=== PATIENT | female | born 1975 | race Caucasian/White ===

== ENCOUNTER 2016-09-17 21:17 | Emergency (ER) | payer SELFPAY ==
[~2016-09-17] VITALS: Ht 171.4 cm; Wt 106.7 kg
[~2016-09-17 21:17] MED LIST: ACET-2321 PO; IBUP-14 PO
--- OUTSIDE RECORDS SUMMARY | 2016-09-17 21:21 | XMS REPORT ---
Author Author Tara Gibson Organization [employer] Address Unknown Phone Unavailable Care Team Providers Care Galley Hand Name Role Phone Tara Gibson CP Unavailable Allergies, Adverse Reactions, Alerts Substance Reaction Event Type Penicillin Info Not Available Drug Allergy Problems Problem Type Condition Code Onset Dates Condition Status Assessment URI 460 Active Assessment Depressive disorder, not elsewhere classified 311 Active Problem Depressive disorder, not elsewhere classified 311 Active Medications Medication Code System Code Instructions Start Date End Date Status Dosage Advil [facility] [address]-32 200 MG Orally every 6 hrs 1 tablet as needed Azithromycin [facility] [address]-81 250 MG Orally Once a day 2014 November 11, 2014 2 tablets on the first day, then 1 tablet daily for 4 days Citalopram Hydrobromide [facility] [address]-06 20 MG Orally Once a day August 2 tablets Procedures Procedure Coding System Code Date OFFICE VISIT, EST-LOW COMPLEXITY (15 MIN.) CPT-4 44908 2014 Vital Signs Date/Time: 2014 Blood Pressure Systolic 108 mm Hg Cardiac Monitoring Heart Rate 72 /min Height 67 in Blood Pressure Diastolic 60 mm Hg Results No Known Results Summary Purpose [employer] Submission
--- OUTSIDE RECORDS SUMMARY | 2016-09-17 21:21 | XMS REPORT ---
Author Author Tara Gibson Organization [employer] Address Unknown Phone Unavailable Care Team Providers Care Paralegal Specialist Name Role Phone Tara Gibson CP Unavailable Allergies, Adverse Reactions, Alerts Substance Reaction Event Type Penicillin Info Not Available Drug Allergy Problems Problem Type Condition Code Onset Dates Condition Status Assessment Depressive disorder, not elsewhere classified 311 Active Problem Depressive disorder, not elsewhere classified 311 Active Medications Medication Code System Code Instructions Start Date End Date Status Dosage Advil [facility] [address]-01 200 MG Orally every 6 hrs 1 tablet as needed Citalopram Hydrobromide [facility] [address]-16 20 MG Orally Once a day August 1/2 tablet x 7d, then 1 pill qd Procedures Procedure Coding System Code Date COMPLETE CBC W/AUTO DIFF WBC CPT-4 78290 August 02, 2014 COMPREHENSIVE METABOLIC PANEL CPT-4 61104 August 02, 2014 URINALYSIS, IN HOUSE CPT-4 49935 August 02, 2014 TSH CPT-4 48561 August 02, 2014 LIPID PANEL CPT-4 83059 August 02, 2014 OFFICE VISIT, EST-MOD. COMPLEXITY (25 MIN) CPT-4 13363 August 02, 2014 Vital Signs Date/Time: August 02, 2014 Height 67 in Weight 215.8 lbs Temperature 98.0 F Blood Pressure Diastolic 62 mm Hg Blood Pressure Systolic 124 mm Hg Cardiac Monitoring Heart Rate 84 /min BMI 33.80 Index Respiratory Rate 16 /min Results No Known Results Summary Purpose [employer] Submission
--- OUTSIDE RECORDS SUMMARY | 2016-09-17 21:21 | XMS REPORT ---
Author Author Tara Gibson Organization [employer] Address Unknown Phone Unavailable Care Team Providers Care Admissions Consultant Name Role Phone Tara Gibson CP Unavailable Allergies No Known Allergies Problems Problem Type Condition Code Onset Dates Condition Status Problem Depressive disorder, not elsewhere classified 311 Active Medications Medication Code System Code Instructions Start Date End Date Status Dosage Indomethacin [facility] [place] [address]-21 50 MG Orally Three times a day September 07, 2014 September 22, 2014 1 capsule with food Results No Known Results Summary Purpose [employer] Submission
--- OUTSIDE RECORDS SUMMARY | 2016-09-17 21:22 | XMS REPORT ---
Author Author Pipe Tinsley Organization [employer] Address Unknown Phone Unavailable Care Team Providers Care Coffee Grower Name Role Phone Pipe Tinsley CP Unavailable Allergies No Known Allergies Problems Problem Type Condition Code Onset Dates Condition Status Problem Depressive disorder, not elsewhere classified F32.9 Active Medications Medication Code System Code Instructions Start Date End Date Status Dosage Citalopram Hydrobromide [facility] [address]-82 20 MG Orally Once a day August 1 tablets Results No Known Results Summary Purpose [employer] Submission
--- OUTSIDE RECORDS SUMMARY | 2016-09-17 21:22 | XMS REPORT ---
Author Author Tara Gibson Organization [employer] Address Unknown Phone Unavailable Care Team Providers Care Stave Grader Name Role Phone Tara Gibson CP Unavailable Allergies, Adverse Reactions, Alerts Substance Reaction Event Type Penicillin Info Not Available Drug Allergy Problems Problem Type Condition Code Onset Dates Condition Status Assessment Depressive disorder, not elsewhere classified 311 Active Assessment Pain in joint, other specified sites 719.48 Active Problem Depressive disorder, not elsewhere classified 311 Active Medications Medication Code System Code Instructions Start Date End Date Status Dosage Indomethacin [facility] [address]-10 50 MG Orally Three times a day September 07, 2014 October 07, 2014 1 capsule with food Advil [facility] [address]-57 200 MG Orally every 6 hrs 1 tablet as needed Citalopram Hydrobromide [facility] [address]-28 20 MG Orally Once a day August 1 tablet Procedures Procedure Coding System Code Date OFFICE VISIT, EST-LOW COMPLEXITY (10 MIN.) CPT-4 69658 September 07, 2014 URIC ACID CPT-4 36435 September 07, 2014 Vital Signs Date/Time: September 07, 2014 Height 67 in Weight 210.0 lbs Temperature 98.9 F Blood Pressure Diastolic 72 mm Hg Blood Pressure Systolic 112 mm Hg Cardiac Monitoring Heart Rate 68 /min BMI 32.89 Index Respiratory Rate 16 /min Results No Known Results Summary Purpose [employer] Submission
--- OUTSIDE RECORDS SUMMARY | 2016-09-17 21:22 | XMS REPORT ---
Author Author Christelle Rodriguez Organization [employer] Address Unknown Phone Unavailable Care Team Providers Care Director Erp Name Role Phone Christelle Rodriguez CP Unavailable Allergies, Adverse Reactions, Alerts Substance Reaction Event Type Penicillin Info Not Available Drug Allergy Problems Problem Type Condition Code Onset Dates Condition Status Assessment Depressive disorder, not elsewhere classified F32.9 Active Assessment Adjustment disorder with anxiety F43.22 Active Problem Depressive disorder, not elsewhere classified F32.9 Active Medications Medication Code System Code Instructions Start Date End Date Status Dosage Citalopram Hydrobromide [facility] [address]-57 20 MG Orally Once a day August 1 tablets Ventolin HFA [facility] [address]-55 108 (90 Base) MCG/ACT Inhalation every 6 hrs May 29, 2015 1 to 2 puffs as needed for cough/congestion Advil [facility] [address]-68 200 MG Orally every 6 hrs 1 tablet as needed Procedures Procedure Coding System Code Date OFFICE VISIT, EST-LOW COMPLEXITY (15 MIN.) CPT-4 18186 Jan 02, 2016 Vital Signs Date/Time: Jan 02, 2016 Temperature 98.7 F Height 67 in Weight 193.0 lbs Blood Pressure Diastolic 86 mm Hg Blood Pressure Systolic 126 mm Hg Cardiac Monitoring Heart Rate 85 /min BMI 30.22 Index Oximetry 98 % Results No Known Results Summary Purpose [employer] Submission
--- OUTSIDE RECORDS SUMMARY | 2016-09-17 21:22 | XMS REPORT ---
Author Author Pipe Tinsley Organization [employer] Address Unknown Phone Unavailable Care Team Providers Care Gusset Edger Name Role Phone Pipe Tinsley CP Unavailable Allergies, Adverse Reactions, Alerts Substance Reaction Event Type Penicillin Info Not Available Drug Allergy Problems Problem Type Condition Code Onset Dates Condition Status Assessment Elevated blood-pressure reading, without diagnosis of hypertension R03.0 Active Assessment Dehydration E86.0 Active Assessment Syncope and collapse R55 Active Assessment Dizziness and giddiness R42 Active Problem Depressive disorder, not elsewhere classified 311 Active Assessment Other specified noninfective gastroenteritis and colitis K52.89 Active Assessment Adjustment disorder with anxiety F43.22 Active Assessment Shortness of breath R06.02 Active Assessment Infectious gastroenteritis and colitis, unspecified A09 Active Medications Medication Code System Code Instructions Start Date End Date Status Dosage Advil [facility] [address]-50 200 MG Orally every 6 hrs 1 tablet as needed Citalopram Hydrobromide [facility] [address]-77 20 MG Orally Once a day August 2 tablets Procedures Procedure Coding System Code Date COMPLETE CBC W/AUTO DIFF WBC CPT-4 96955 Feb 15, 2015 CREATINE KINASE (CPK) CPT-4 94504 Feb 15, 2015 OFFICE VISIT, EST-MOD. COMPLEXITY (25 MIN) CPT-4 63156 Feb 15, 2015 TEST, IN HOUSE CPT-4 27839 Feb 15, 2015 IH CMP CPT-4 30138 Feb 15, 2015 URINALYSIS, IN HOUSE CPT-4 53321 Feb 15, 2015 MAGNESIUM CPT-4 17391 Feb 15, 2015 D DIMER QUANT CPT-4 76978 Feb 15, 2015 TSH WITH REFLEX T4 CPT-4 50912 Feb 15, 2015 TROPONIN CPT-4 43788 Feb 15, 2015 Vital Signs Date/Time: Feb 15, 2015 Height 67 in Weight 206.8 lbs Temperature 98.3 F Blood Pressure Diastolic 76 mm Hg Blood Pressure Systolic 118 mm Hg Cardiac Monitoring Heart Rate 90 /min BMI 32.39 Index Oximetry 97 % Respiratory Rate 16 /min Results Name Result Date Reference Range Unit Abnormality Flag In House Test, Urine Summary Purpose [employer] Submission
--- OUTSIDE RECORDS SUMMARY | 2016-09-17 21:22 | XMS REPORT ---
Author Author Christelle Rodriguez Organization [employer] Address Unknown Phone Unavailable Care Team Providers Care Concession Manager Name Role Phone Christelle Rodriguez CP Unavailable Allergies, Adverse Reactions, Alerts Substance Reaction Event Type Penicillin Info Not Available Drug Allergy Problems Problem Type Condition Code Onset Dates Condition Status Assessment Depressive disorder, not elsewhere classified F32.9 Active Problem Depressive disorder, not elsewhere classified F32.9 Active Medications Medication Code System Code Instructions Start Date End Date Status Dosage Citalopram Hydrobromide [facility] [address]-11 20 MG Orally Once a day August 1 tablets Advil [facility] [address]-92 200 MG Orally every 6 hrs 1 tablet as needed Ventolin HFA [facility] [address]-99 108 (90 Base) MCG/ACT Inhalation every 6 hrs May 29, 2015 1 to 2 puffs as needed for cough/congestion Procedures Procedure Coding System Code Date OFFICE VISIT, EST-LOW COMPLEXITY (15 MIN.) CPT-4 42607 Mar 06, 2016 Vital Signs Date/Time: Mar 06, 2016 Temperature 98.2 F Height 67 in Weight 193.8 lbs Blood Pressure Diastolic 64 mm Hg Blood Pressure Systolic 108 mm Hg Cardiac Monitoring Heart Rate 70 /min BMI 30.35 Index Oximetry 98 % Respiratory Rate 14 /min Results No Known Results Summary Purpose [employer] Submission
--- OUTSIDE RECORDS SUMMARY | 2016-09-17 21:22 | XMS REPORT ---
Author Author Tara Gibson Organization [employer] Address Unknown Phone Unavailable Care Team Providers Care Personal Injury Legal Assistant Name Role Phone Tara Gibson CP Unavailable Allergies, Adverse Reactions, Alerts Substance Reaction Event Type Penicillin Info Not Available Drug Allergy Problems Problem Type Condition ICD-9 Code Onset Dates Condition Status Assessment Acute pharyngitis 462 Active Assessment Unspecified viral infection, in conditions classified elsewhere and of unspecified site 079.99 Active Medications Medication Code System Code Instructions Start Date End Date Status Dosage Advil [facility] [address]-18 200 MG Orally every 6 hrs 1 tablet as needed Procedures Procedure Coding System Code Date OFFICE VISIT, EST-MOD. COMPLEXITY (25 MIN) CPT-4 53948 Jun 07, 2014 Vital Signs Date/Time: Jun 07, 2014 Height N/A in Weight 218 lbs Temperature 99.5 F Blood Pressure Diastolic 60 mm Hg Blood Pressure Systolic 120 mm Hg Cardiac Monitoring Heart Rate 102 /min BMI 34.14 Index Oximetry 96 % Results No Known Results Summary Purpose [employer] Submission
--- OUTSIDE RECORDS SUMMARY | 2016-09-17 21:22 | XMS REPORT ---
Author Author Tara Gibson Organization [employer] Address Unknown Phone Unavailable Care Team Providers Care Skein Yarn Dyer Name Role Phone Tara Gibson CP Unavailable Allergies No Known Allergies Problems Problem Type Condition Code Onset Dates Condition Status Problem Depressive disorder, not elsewhere classified 311 Active Medications Medication Code System Code Instructions Start Date End Date Status Dosage Citalopram Hydrobromide [facility] [address]-35 20 MG Orally Once a day August 1/2 tablet x 7d, then 1 pill qd Results No Known Results Summary Purpose [employer] Submission
[2016-09-17 22:20] VITALS: Ht 171.4 cm; Wt 106.7 kg
[2016-09-17] MEDS ORDERED: CITA20TA17 PO (22:37)
--- NOTE | 2016-09-17 22:46 | ERPDOC ---
Departure Disposition Decision Date: September 18, 2016 Disposition Decision Time: 23:45 Disposition: 01 DISCHARGED HOME, SELF-CARE Impression Impression Impression: Primary Impression: Constipation Constipation type: slow transit constipation Qualified Codes: K59.01 - Slow transit constipation Additional Impression: RUQ abdominal pain Severity: Moderate Condition: Improved Seen By: Mid-level only Referrals: ASHWIN SNOW DO (Family) Patient Instructions: Constipation (ED) Problems/Meds/Labs Reviewed?: Yes Medications reviewed and manag: Yes Additional Instructions: Your labs were normal today. You abdominal film indicates you are constipated. You may take [id number]-[id number] milk of magnesia or MiraLAX for constipation. You may ask her to drink prune juice or apple juice. Stay well hydrated drink 8-12 glasses of water daily. Follow with your PCP if your symptoms are not improving. Follow treatment plan. Follow up care ordered?: Yes Mental Status: Alert, Oriented HPI - Abdominal Pain General Chief Complaint: Abdominal Pain Stated Complaint: RT SIDE PAIN Time Seen by Provider: 22:46 Source: patient HPI - Abdominal Pain Initial Comments 40-year-old female presents to ER with complaint of right upper quadrant pain and pain up under rib cage on right side which radiates to her right back under shoulder blade. Patient states pain has been continuous since September 12. States she has a doctor's appointment tomorrow. Does admit that she has had a cough intermittently for approx. 1 month. Admits nausea but none at this time. Denies fever, chills, SOB, vomiting, constipation. When I asked patient if she has had any problem with her gallbladder she says she has had sonogram on it and "it was fine". Pain Scale: Now: 8/10 Quality: aching Location: RUQ Modifying Factors: WORSE WITH: palpation Associated Symptoms: back pain, DENIES: chest pain, diaphoresis, fatigue, fever /chills, headache, heartburn, nausea/vomiting, shortness of breath, swelling/ mass in abdomen, weakness Allergies: Coded Allergies: Penicillins (Verified Allergy, Mild, RASH, 09/17/16) HASN'T HAPPENED SINCE SHE WAS A CHILD Past History Past Medical History Metabolic: DENIES: diabetes, hypertension Cardiac: DENIES: angina Respiratory: DENIES: asthma GI: DENIES: ulcers Neurological: DENIES: seizures Musculoskeletal: osteoarthritis Surgical History Reproductive/: , tubal ligation Joint: other (right clavicle repair and ankle ) Family History Family PMH: FOUND: other (noncontributory) Vaccines Hx Influenza Vaccination: No Hx Pneumococcal Vaccination: No Social History Does patient use chewing tobac: No # of Packs/Tins per Day: 1 # of Years: 15 Household Members: family Review of Systems Constitutional Constitutional: DENIES: chills, dizziness, fever, weakness Eyes General: DENIES: erythema, exudate Lids/Accessories: DENIES: erythema, swelling ENMT Ears: DENIES: pain Hearing: DENIES: hearing loss Sinuses: DENIES: congestion, rhinorrhea Mouth/Throat: DENIES: sore throat Cardiovascular Cardiac: DENIES: chest pain, murmur Rhythm/Rate: DENIES: palpitations Pulmonary Respiratory: DENIES: cough, dyspnea GI Upper Abdomen: DENIES: nausea, pain, vomiting Lower Abdomen: DENIES: blood in stool, diarrhea, pain General: DENIES: dysuria, pain Musculoskeletal General: DENIES: joint pain, pain, tenderness Integumentary Skin: DENIES: color change, itching, rash Neurological General: DENIES: ataxia, change in strength, numbness, paralysis/paresis, weakness Psychiatric Psychiatric: DENIES: anxiety, depression, nervousness Physical Exam General General Nourishment: well nourished, well developed, no acute distress, adult General Body Habitus: well groomed Vitals and Pain First Documented Vital Signs Date Time Temp Pulse Resp B/P Pulse Ox O2 Delivery O2 Flow Rate FiO2 09/17/16 22:20 98.1 76 125/64 96 Room Air 09/17/16 23:12 20 Weight: Kilograms: 106.700 Height (feet): 5 Height (inches): 7.50 Triage Pain Scale: Eyes (brief) Eyes Brief: found: EOMI ENMT (brief) ENMT Brief: FOUND: mucosa moist, NOT FOUND: nasal exudate, nasal swelling, pharnyx erythema Neck (brief) Neck: FOUND: trachea midline Respiratory (brief) Respiratory: FOUND: clear all taylor, equal bilaterally, symmetrical, NOT FOUND : wheezes Cardiovascular (brief) Cardiac: FOUND: regular rate, regular rhythm Abdomen Inspection: NOT FOUND: distention Palpation: FOUND: soft, tender (RUQ), NOT FOUND: Sapp's sign, Rosving's sign , hepatomegaly, splenomegaly Auscultation: FOUND: normoactive (x4) Musculoskeletal (brief) Musculoskeletal Brief: NOT FOUND: deformity, loss of motion Integumentary (brief) Integumentary Brief: FOUND: dry, pink, warm Neurologic (brief) Neurological Brief: FOUND: gait w/o gross def to obs, motor-no gross deficits, sensory-no gross deficits Psychiatric (brief) Psychiatric Brief: FOUND: alert, oriented Differential Diagnoses Considering: Biliary Colic, Cholecystitis, Constipation, Diverticulitis, GERD, Pancreatitis, Pneumonia, Ulcer Progress Results/Orders Orders Lab Results Medications Current ED Medications Hydromorphone HCl (Dilaudid) 1 mg O ONCE IV Last administered on 09/17/16 23: 12; Start 09/17/16 at 23:00; Stop 09/17/16 at 23:01; Status DC Ondansetron HCl (Zofran) 4 mg O ONCE IV Last administered on 09/17/16 23:13; Start 09/17/16 at 23:00; Stop 09/17/16 at 23:01; Status DC Progress Progress Labs are unremarkable Patient is feeling better after Dilaudid. I discussed labs/x-rays with patient and that she had a moderate stool burden in colon. I discussed treatment plan, close follow up with PCP and return precautions which patient verbalized understanding. Xray Xray #1: Xray: CXR PA/Lat Interpretation: Normal (no acute cardiopulmonary findings (Dr. Andrade)) Xray #2: Xray: KUB Upright (nonobstructive pattern, large amount of stool in) CHELSEA SCOTT BROOMCORN SORTER September 17, 2016 22:46 (AST/SGOT) 17U/L Alanine Aminotransferase (ALT/SGPT) 41U/L Alkaline Phosphatase 88U/L Total Protein 7.6G/DL Albumin 4.4G/DL Globulin 3.2G/DL Albumin/Globulin Ratio 1.4RATIO Lipase 115U/L Chemistry Specimen Hemolysis < 15 Medications Current ED Medications Hydromorphone HCl (Dilaudid) 1 mg O ONCE IV Last administered on 09/17/16 23: 12; Start 09/17/16 at 23:00; Stop 09/17/16 at 23:01; Status DC Ondansetron HCl (Zofran) 4 mg O ONCE IV Last administered on 5/17/17at 23:13; Start 09/17/16 at 23:00; Stop 09/17/16 at 23:01; Status DC CHELSEA SCOTT APRN September 17, 2016 22:46
[2016-09-17] MEDS ORDERED: HYDROMORPHONE 2mg/ml INJECTION IV ONE (23:00)
[2016-09-17] MEDS ORDERED: ONDANSETRON 4mg/2ml INJECTION IV ONE (23:00)
[2016-09-17 23:05] LABS: BASOPHILS # (AUTO) 0.1 T/MM3 (0-0.2); BASOPHILS % (AUTO) 0.6 % (0-2); EOSINOPHILS # (AUTO) 0.2 T/MM3 (0-0.5); EOSINOPHILS % (AUTO) 2.4 % (0-4); HGB - HEMOGLOBIN 14.8 GM/DL (12-16); IMMATURE GRANULOCYTE # (AUTO) 0.03 T/MM3 (0.00-0.03); IMMATURE GRANULOCYTE % (AUTO) 0.3 % (0.0-0.5); LYMPHOCYTES # (AUTO) 3.1 T/MM3 (1-4.8); LYMPHOCYTES % (AUTO) 35.9 % (23-45); MEAN CORPUSCULAR HGB 28.9 UUG (26-34); MEAN CORPUSCULAR HGB CONC(MCHC 33.6 GM/DL (31-37); MEAN CORPUSCULAR VOLUME 85.9 UM3 (80-100); MEAN PLATELET VOLUME 8.8 UM3 (9.4-12.4); MONOCYTES # (AUTO) 1.2 T/MM3 (0-0.8); NEUTROPHILS #(AUTO)-ABSOLUTE 4.1 T/MM3 (1.8-7.7); NEUTROPHILS % (AUTO) 46.8 % (33-66); RED BLOOD COUNT 5.12 M/MM3 (4.00-5.20); WBC - WHITE BLOOD COUNT 8.7 T/MM3 (4.5-11.0)
[2016-09-17 23:14] LABS: ALBUMIN 4.4 G/DL (3.5-5.0); ALBUMIN/GLOBULIN RATIO 1.4 RATIO (1.1-2.2); ALKALINE PHOSPHATASE 88 U/L (38-126); ALT (SGPT) 41 U/L (9-52); ANION GAP 12 MEQ/L (5-15); AST (SGOT) 17 U/L (14-36); BUN/CREATININE RATIO 22 RATIO (6-26); CHLORIDE 106 MEQ/L (98-107); CO2 - CARBON DIOXIDE 26 MEQ/L (22-30); CREATININE 0.6 MG/DL (0.7-1.2); GLOMERULAR FILTRATION RATE 111; GLUCOSE 87 MG/DL (65-110); LIPASE 115 U/L (23-300); POTASSIUM 3.6 MEQ/L (3.6-5); SODIUM 144 MEQ/L (134-144); TOTAL PROTEIN 7.6 G/DL (6.3-8.2)
--- NOTE | 2016-09-17 23:30 | NUR ---
IMAGING PT TO IMAGING VIA CART AT THIS TIME.
--- NOTE | 2016-09-17 23:50 | NUR ---
IMAGING PT RETURN TO ROOM FROM IMAGING AT THIS TIME.
[2016-09-18 00:36] VITALS: BP 130/75; PULSE 81; RESP 20; TEMP 98.1; O2SAT 98
--- NOTE | 2016-09-18 00:36 | NUR ---
DEPART PT GIVEN DI FOR CONSTIPATION AND F/U. VERBALIZES UNDERSTANDING OF DI. QUESTIONS ASKED/ANSWERED - DENIES FURTHER QUESTIONS/NEEDS A THIS TIME. PT REPORTS IMPROVEMENT IN PAIN. IV SITE REMOVED. PERSONAL BELONGINGS GATHERED. PT AMBULATED/ESCORTED TO ED EXIT - GAIT STABLE, NO SIGN OF DISTRESS.
--- NOTE | 2016-09-18 08:00 | DI ---
Indication: ITS.REASON: RUQ pain PROCEDURE: KUB W/UPRIGHT: Encounter: Initial Comparison: None Findings: The visualized lung bases show some airspace opacity in right lower lobe. There is no free air on the upright view. The bowel gas pattern is nonobstructive and nonspecific. Gas is seen in nondilated small and large bowel to the level of the rectum. Moderate stool is seen throughout the colon. The bony structures are grossly unremarkable. Impression: Nonobstructive nonspecific bowel gas pattern. Right basilar airspace disease. .
--- NOTE | 2016-09-18 08:02 | DI ---
INDICATION: ITS.REASON: Pain right anterior chest PROCEDURE: CHEST 2-VIEWS UPRIGHT (PA \T\ LAT) Encounter: Initial COMPARISON: March 23, 2010 FINDINGS: There is some linear airspace opacity in the right middle lobe. The remaining lung taylor are clear. No pleural effusion or pneumothorax. Heart size and mediastinal contours are within normal limits. Pulmonary vascularity is normal. No significant skeletal abnormality. Impression: Right middle lobe probable atelectasis. .
== END 2016-09-18 00:36 | disposition home or self-care (01) ==
LOC: ED 21:17
DX: K59.01 Slow transit constipation (principal)
CPT/HCPCS: 36415; 80053; 83690; 85025